=== PATIENT | male | born 1935 | race Caucasian/White ===

== ENCOUNTER 2019-03-02 11:27 | Emergency (ER) | payer MEDICARE ==
[~2019-03-02] VITALS: Ht 172.7 cm; Wt 74.8 kg
== END 2019-03-02 13:20 | disposition home or self-care (01) ==
LOC: ED 11:27
DX: S51.811A Laceration without foreign body of right forearm, initial encounter (principal); S00.12XA Contusion of left eyelid and periocular area, initial encounter; W18.09XA Striking against other object with subsequent fall, initial encounter; Y93.89 Activity, other specified; Y92.89 Other specified places as the place of occurrence of the external cause; Y99.8 Other external cause status